=== PATIENT | male | born 1960 | race Caucasian/White ===

== ENCOUNTER → 2018-12-03 | Outpatient (CLI) | payer MEDICARE ==
--- NOTE | 2018-12-03 16:23 | RAD ---
Examination: VENOUS LOWER EXT BILATERAL History: DVT 2 months ago. Lower extremity edema. Comparison: None FINDINGS: Bilateral lower extremity duplex venous ultrasound exam was performed. Grayscale, color Doppler, and spectral Doppler imaging was performed. Compression and augmentation was performed. Exam is limited due to edema of the calf level and associated limited visualization of the calf veins. Posterior tibial veins in particular are not well visualized. The right common femoral vein, superficial femoral vein, popliteal vein, and greater saphenous vein are normal with no evidence of deep venous thrombus. Normal compressibility and augmentation is evident. The left common femoral vein, superficial femoral vein, popliteal vein, and greater saphenous vein are normal with no evidence of deep venous thrombus. Normal compressibility and augmentation is evident. Soft tissue edema involving the calf regions bilaterally is greater on the right. IMPRESSION: Edema at the calf level bilaterally within soft tissues. No evidence of deep venous thrombus involving the lower extremities. Electronically signed by: Bakari Coleman MD (12/03/2018 4:20 PM) [facility]
== END | disposition home or self-care (01) ==
LOC: US 14:03
PROVIDERS: ATTEND Neurological Surgery
DX: M79.89 Other specified soft tissue disorders (principal)
CPT/HCPCS: 93970